=== PATIENT | female | born 1985 | race Hispanic/Latino ===

== ENCOUNTER 2023-10-10 06:54 | Day surgery (SDC) | payer OTHER ==
[2023-10-05 15:16] LABS: BASOPHILS # (AUTO) 0.03 K/uL (0.00-0.20); BASOPHILS % (AUTO) 0.3 % (0.0-5.0); EOSINOPHILS # (AUTO) 0.18 K/uL (0.00-0.70); HEMATOCRIT 39.7 % (36-48); IMMATURE GRANULOCYTE ABSOLUTE 0.03 K/uL (0-1); LYMPHOCYTES # (AUTO) 3.1 K/uL (1.0-4.8); MEAN CORPUSCULAR HEMOGLOBIN 29.8 pg (27.0-33.0); MEAN CORPUSCULAR HGB CONC 33.8 g/dL (32.0-36.0); MEAN CORPUSCULAR VOLUME 88.4 fL (79-99); MONOCYTES # (AUTO) 0.6 K/uL (0.1-1.0); MONOCYTES % (AUTO) 6.1 % (3.0-13.0); NEUTROPHILS # (AUTO) 5.3 K/uL (1.8-7.7); NEUTROPHILS % (AUTO) 57.3 % (40.0-77.0); PLATELET COUNT (AUTO) 358 K/uL (130-400); RED BLOOD CELL COUNT(AUTO) 4.49 MIL/uL (4.00-5.50); RED CELL DISTRIBUTION WIDTH 12.9 % (11.0-15.5); WHITE BLOOD COUNT (AUTO) 9.2 K/uL (4.8-10.8)
[2023-10-05 15:44] VITALS: BP 105/70; PULSE 94; RESP 16
[~2023-10-10] VITALS: Ht 160 cm; Wt 69.2 kg
[2023-10-10] VITALS (20 sets, daily range): BP systolic 93–134; BP diastolic 57–81; PULSE 77–104; RESP 14–24
[~2023-10-10 06:54] MED LIST: RELU1TAB PO
[2023-10-10] MEDS ORDERED: HYDROMORPHONE 1 MG INJ ONE (07:18)
[2023-10-10] MEDS ORDERED: FAMOTIDINE 20MG VIAL IV ONE (07:18)
[2023-10-10] MEDS ORDERED: GLYCOPYRROLATE 0.2 MG/ML 5 ML VIAL ONE (07:24)
[2023-10-10] MEDS ORDERED: LIDOCAINE PF 100MG/5ML (2%) SYRINGE 5ML ONE (07:24)
[2023-10-10] MEDS ORDERED: PROPOFOL 10 MG/ML 20ML VIAL IV ONE ×2 (07:25→10:16)
[2023-10-10] MEDS ORDERED: SUCCINYLCHOLINE CHLORIDE 20 MG/ML 10 ML VIAL ONE (07:25)
[2023-10-10] MEDS ORDERED: ROCURONIUM BROMIDE 10MG/1ML 5ML VL ONE (07:25)
[2023-10-10] MEDS ORDERED: FENTANYL CITRATE PF 50 MCG/1 ML 2ML VIAL ONE (07:25)
[2023-10-10] MEDS: CEFAZOLIN SODIUM 2 GM VIAL ONE (07:30)
[2023-10-10] MEDS: PHENAZOPYRIDINE HCL 200 MG TABLET ONE (07:32)
[2023-10-10] MEDS: DEXAMETHASONE SOD PHOSPHATE 4 MG/ML 1ML VIAL ONE (07:32)
[2023-10-10] MEDS: METRONIDAZOLE 500MG/100ML BAG 100 ML ONE (07:32)
[2023-10-10] MEDS: LACTATED RINGERS 1000ML 1,000 ML IV ONE (07:34)
[2023-10-10] MEDS: SCOPOLAMINE HYDROBROMIDE 1 EACH ADH..PATCH TD ONE (07:35)
[2023-10-10] MEDS ORDERED: MIDAZOLAM HCL 1 MG/ML 2ML VIAL ONE (08:06)
[2023-10-10] MEDS: BUPIVACAINE/PF 0.25% 30ML VIAL IJ ONE (08:41)
[2023-10-10] MEDS ORDERED: PHENYLEPHRINE HCL 10 MG/ML 1ML VIAL IV ONE (09:18)
[2023-10-10] MEDS ORDERED: KETOROLAC 30MG VIAL (30MG/ML) ONE (10:06)
[2023-10-10] MEDS ORDERED: DiphenhydrAMINE HCL 50 MG/ML VIAL ONE (10:16)
[2023-10-10] MEDS ORDERED: NEOSTIGMINE METHYLSULFATE 1MG/ML IV ONE (10:19)
[2023-10-10] MEDS: MORPHINE 10MG VIAL ONE (12:17)
[2023-10-10] MEDS: ONDANSETRON 4MG INJ ONE (12:17)
[2023-10-10] MEDS ORDERED: LACTATED RINGERS 1000ML 1,000 ML IV ONE (13:24)
== END 2023-10-10 14:47 | disposition home or self-care (01) ==
LOC: DAH 06:54
PROVIDERS: ATTEND Obstetrics & Gynecology
DX: N92.0 Excessive and frequent menstruation with regular cycle (principal); N72 Inflammatory disease of cervix uteri; N80.03 Adenomyosis of the uterus; N80.00 Endometriosis of the uterus, unspecified; N93.9 Abnormal uterine and vaginal bleeding, unspecified; D25.9 Leiomyoma of uterus, unspecified; Z79.899 Other long term (current) drug therapy; Z79.01 Long term (current) use of anticoagulants; Z98.890 Other specified postprocedural states; Z98.891 History of uterine scar from previous surgery; Z82.49 Family history of ischemic heart disease and other diseases of the circulatory system; Z83.3 Family history of diabetes mellitus; Z80.0 Family history of malignant neoplasm of digestive organs; Z80.3 Family history of malignant neoplasm of breast; Z83.438 Family history of other disorder of lipoprotein metabolism and other lipidemia
CPT/HCPCS: 58571; S2900; 36415; 81025; 84703; 85025; 86850; 86900; 86901; 88307; A4344; J0330; J1100; J1170; J1200; J1885; J2001; J2250; J2270; J2371; J2405; J2704; J2710; J3010; J3490; J7030; J7120; A4215; A4221; A4222; A4223; A4510; A4600; A4649; A4663; A4930; A6260; G0168; J0665; J0690